=== PATIENT | male | born 1980 ===

== ENCOUNTER 2019-03-22 15:38 | Emergency (ER) | payer SELFPAY ==
[~2019-03-22] VITALS: Ht 167.6 cm; Wt 90.7 kg
[2019-03-22 15:38] VITALS: BP 144/93
== END 2019-03-22 15:40 | disposition left against medical advice (07) ==
LOC: ER 15:38
DX: Z02.89 Encounter for other administrative examinations (principal); Z53.21 Procedure and treatment not carried out due to patient leaving prior to being seen by health care provider